=== PATIENT | male | born 1970 | race Caucasian/White ===

== ENCOUNTER 2023-05-07 08:02 | Emergency (ER) | payer OTHER, SELFPAY ==
--- NOTE | 2023-05-07 08:15 | ED.URI ---
HPI - URI/Sore Throat General Chief Complaint: Upper Respiratory Infection Stated Complaint: flu like symptoms Source: patient, RN notes reviewed and old records reviewed Mode of arrival: ambulatory Limitations: no limitations History of Present Illness HPI Narrative: 52-year-old male presents to Express Care with complaint of sinus congestion, sneezing, cough, myalgias, and nausea and vomiting that started yesterday. Patient denies chest pain, dizziness, weakness, shortness of breath. Patient has not taken anything for symptoms MD elicited complaint: cough and rhinorrhea Onset (ago): day(s) (1) Related Data Home Medications Medication Instructions Recorded Confirmed duloxetine 30 mg capsule,delayed mg PO 05/07/23 release lansoprazole 30 mg capsule,delayed mg 05/07/23 release lisinopril 10 mg tablet mg 05/07/23 Allergies Allergy/AdvReac Type Severity Reaction Status Date / Time No Known Allergies Allergy Mild Verified 05/07/23 08:39 Review of Systems Constitutional: Constitutional: Reports as per HPI and Reports body ache(s) Eyes: Eyes: Reports no additional eye complaints ENT: Reports as per HPI, Reports nasal congestion and Reports nasal discharge Cardiovascular: Cardiovascular: Reports no additional cardiovascular complaints Respiratory: Respiratory: Reports as per HPI, Reports cough, Denies pain with cough and Denies dyspnea Gastrointestinal: Gastrointestinal: Reports as per HPI, Denies diarrhea, Reports nausea and Reports vomiting Neurologic: Reports system reviewed and no additional complaints, except as documented PMFSH Past Medical History Medical History Acid reflux Depression Hypertension Comments At the time of my signature, I reviewed and agree with the nursing past medical, surgical, social, and family history. There is no relevant family history pertinent to the patient complaint. Exam Const: General: cooperative, healthy appearing, no acute distress and well nourished Nutritional Appearance: well nourished Orientation/consciousness: patient oriented x3 Limitations: no limitations HENMT: Head: normal to inspection and normocephalic Ears: external ears normal, TM's normal bilaterally, mastoids normal and Abnormal EAC present Face/Nose/Sinus: normal facial exam Face and sinus: normal facial exam Mouth: Yes Normal oral and palatal mucosa present, Yes oropharynx normal and Yes moist mucous membranes Throat: posterior oropharynx normal, tonsils normal, uvula midline and no uvular edema Eyes: General: appearance normal, both eyes and all related structures Sclera: sclerae normal Pupils: Equal, round and reactive pupils present Resp: Effort & Inspection: normal respiratory effort, able to speak in complete sentences, no audible wheezes, no cough, no respiratory distress and no retractions Auscultation: clear to auscultation bilaterally, no crackles, no rales, no rhonchi and no wheezes Cardio: Rate: regular rate Rhythm: regular rhythm Skin: General skin exam: normal color and no rashes or lesions noted Neuro: General: patient oriented x3 Cranial nerves: Yes Equal, round and reactive pupils present Psych: Appearance: grossly normal Course Course Emergency Course: Some parts of this dictation were generated by voice recognition software and may contain typographical and/or grammatical inaccuracies. Level of Care: Express Care Visit Vital Signs Vital signs: Reviewed MDM - URI/Sore Throat MDM Narrative Medical decision making narrative: patient with symptoms of cough, congestion, myalgias, and vomiting for 1 day. Patient positive for COVID, influenza a in clinic today. Patient is hemodynamically stable and non-septic appearing. Pt is appropriate for discharge home at this time in the setting of strict return/follow-up precautions to include s/s warranting immediate emergency department evaluation. Al
[2023-05-07 08:19] VITALS: BP 129/81; PULSE 128; RESP 18; TEMP 38.8; O2SAT 99
== END 2023-05-07 09:55 | disposition home or self-care (01) ==
PROVIDERS: Emergency Provider Registered Nurse; PCP Family Medicine
DX: U07.1 COVID-19 (principal); J10.1 Influenza due to other identified influenza virus with other respiratory manifestations; K21.9 Gastro-esophageal reflux disease without esophagitis; I10 Essential (primary) hypertension
CPT/HCPCS: 87426; 87804; 99213; C9803; G0463

== ENCOUNTER 2024-08-06 13:11 | Emergency (ER) | payer OTHER, SELFPAY ==
--- NOTE | ~2024-08-06 | XR_ITS ---
EXAMINATION: XR finger 5th RT min 2V DATE: 08/06/2024 13:27 INDICATION: Right hand fifth digit deformity. TECHNIQUE: 3 views of right hand fifth digit were obtained. COMPARISON: None. FINDINGS: There is hyperflexion at fifth distal interphalangeal joint. No fracture. Joint spaces are normal. IMPRESSION: 1. Hyperflexion at fifth distal interphalangeal joint. Reviewed, dictated and finalized at location [facility]
--- OUTSIDE RECORDS SUMMARY | 2024-08-06 13:13 | XMS_ITS | Referral Summary ---
Author Organization [facility] ([facility] at the [facility] Address [address] [place] [address] Care Team Providers Care Disposal Man Name Role Phone Pravin Wharton MD Unavailable Jose Juan Vogel MD Primary Care Provider [phone] Allergies No known active allergies Medications ALPRAZolam (XANAX) 0.5 mg tabletIndicatio ns:Anxiety Take 1 tablet (0.5 mg total) by mouth daily as needed for anxiety 30 tablet 05/07/20 20 Active Additional Information Patient not taking.Reported on 11/02/2023 aspirin 81 mg chewable tablet Take 1 tablet (81 mg total) by mouth daily Active DULoxetine DR (CYMBALTA) 30 mg capsuleIndicati ons:Anxiety TAKE 1 CAPSULE(30 MG) BY MOUTH DAILY 90 capsule 07/18/19 25 Active lisinopriL (PRINIVIL,ZESTR IL) 10 mg tablet TAKE 1 TABLET(10 MG) BY MOUTH DAILY 90 tablet 07/18/19 25 Active lansoprazole (PREVACID) 30 mg capsuleIndicati ons:GERD without esophagitis TAKE 1 CAPSULE(30 MG) BY MOUTH DAILY 90 capsule 07/18/[address] (CYMBALTA) 30 mg capsuleIndicati ons:Anxiety TAKE 1 CAPSULE(30 MG) BY MOUTH DAILY 90 capsule 04/18/20 24 025 Discontinued lansoprazole (PREVACID) 30 mg capsuleIndicati ons:GERD without esophagitis TAKE 1 CAPSULE(30 MG) BY MOUTH DAILY 90 capsule 04/18/20 24 025 Discontinued lisinopriL (PRINIVIL,ZESTR [place]) 10 mg tablet TAKE 1 TABLET(10 MG) BY MOUTH DAILY 90 tablet 04/18/20 24 025 Discontinued Active Problems Problem Noted Date Diagnosed Date Essential hypertension, benign 2021 Annual physical exam 09/10/2021 Spondylosis, cervical 02/14/2019 KESHAV (generalized anxiety disorder) 12/17/2016 GERD without esophagitis 12/17/2016 Hypertriglyceridemia 12/17/2016 Dilatation of pulmonic artery 02/18/2016 Cardiomyopathy 02/18/2016 Asthma 08/16/2004 Resolved Problems Problem Noted Date Diagnosed Date Resolved Date Palpitations 2021 11/02/2023 Neck pain 02/14/2019 05/07/2020 Pain of left upper extremity 02/14/2019 05/07/2020 Elevated blood-pressure read ing without diagnosis of hypertension 08/16/2004 2021 Immunizations Immunization Administration Dates Next Due Hep A, Adult 01/08/2015,07/10/2014 Hep A, Unspecified 01/08/2015,07/10/2014 Hep B Vaccine 01/08/2015,08/07/2014,07/10/2014 Hep B, Unspecified 01/08/2015,08/07/2014, 015 Influenza, Unspecified 03/01/2023(Deferr ed: Patient Refused),03/01/2022(Deferred: Patient Refused),03/21/2021(Deferred: Patient Refused) Social History Tobacco Use Types Packs/Day Years Used Date Smoking Tobacco: Never Smokeless Tobacco: Never Tobacco Cessation:Counseling Given: Not Answered Alcohol Use Standard Drinks/Week Comments Never 0 (1 standard drink = 0.6 oz pur e alcohol) AUDIT-C Answer Date Recorded Frequency of Alcohol Consumption Not on file 09/16/2022 Q2: How many drinks containi ng alcohol do you have on a typical day when you are drinking? 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 Gender Identity Male 10/23/2021 2:24 PM CDT Sexual Orientation Not on file Last Filed Vital Signs Vital Sign Reading Time Taken Comments Blood Pressure 130/74 11/02/2023 10:33 AM CDT Pulse 91 11/02/2023 10:33 AM CDT Temperature 36.8 C (98.3 F) 11/02/2023 10:33 AM CDT Respiratory Rate 16 01/28/2022 1:03 PM CDT Oxygen Saturation 95% 11/02/2023 10:33 AM CDT Inhaled Oxygen Concentration - - Weight 98.7 kg (217 lb 9.6 oz) 11/02/2023 10:33 AM CDT Height 175.3 cm (5' 9 ) 11/02/2023 10:33 AM CDT Body Mass Index 32.13 11/02/2023 10:33 AM CDT Plan of Treatment Not on file Procedures Procedure Name Priority Date/Time Associated Diagnosis Comments PSA SCREEN Routine 11/07/2023 6:12 AM CDT Annual physical exam COLONOSCOPY Routine 01/29/2021 from Last 3 Months or Most Recently Relevant to Health Maintenance Results * PSA screen (11/07/2023 6:12 AM CDT) PSA-Total 0.20 <=3.90 ng/mL Comment: Interpretive Data AGE SEX REFERENCE INTERVAL 0 minutes-150 years Female None 0 minutes-49 years Male None 50-59 years Male 0-3.90 60-69 years Male 0-5.40 70-79 years Male 0-6.20 80-150 years Male 0-6.20 The Eliazar PSA Total assay procedure was used. Results from different manufacturers or methods may not be comparable. Serial testing should be performed using the same method. Current interpretive data last revised 21. Blood 11/07/2023 6:12 AM CDT 11/07/2023 6:55 AM CDT Jose Juan Vogle MD LAB BLOOD ORDERABLES Final Re sult [facility] [id number] [facility] [place] [address] * (ABNORMAL) Colonoscopy (01/29/2021) Anatomical Region Laterality Modality Other 01/29/2021 us Historical Provider ENDOSCOPY PROCEDURES Whit l Result from Last 3 Months or Most Recently Relevant to Health Maintenance Insurance [facility] Care Teams Disposal Man Relationship Specialty Start Date End Date Jose Juan Vogel MD [address] [address] PCP - General 02/09/19 Pravin Wharton MD [address] [address] Folder And Notcher Cardiology 02/01/19
--- OUTSIDE RECORDS SUMMARY | 2024-08-06 13:13 | XMS_ITS | Clinical Summary ---
Author Organization [facility] Address [address] [place] [address] Care Team Providers Care Harbor Tug Captain Name Role Phone None, Provider MD Primary Care Provider Unavaila ble Allergies No known active allergies Medications DULoxetine 20 MG capsule Take 20 mg by mouth daily. Active lansoprazole 30 MG capsule Take 30 mg by mouth daily. 05/07/2020 Active Immunizations Name Administration Dates Next Due Hepatitis A 01/08/2015,07/10/2014 Hepatitis B 01/08/2015,08/07/2014,07/10/2014 Social History Tobacco Use Types Packs/Day Years Used Date Smoking Tobacco: Never Smokeless Tobacco: Never Alcohol Use Standard Drinks/Week Comments Never 0 (1 standard drink = 0.6 oz pur e alcohol) Sex and Gender Information Value Date Recorded Sex Assigned at Not on file Legal Sex Male 1:33 PM CDT Gender Identity Not on file Sexual Orientation Not on file Last Filed Vital Signs Vital Sign Reading Time Taken Comments Blood Pressure 120/94 01/29/2021 6:45 AM CDT Pulse 74 01/29/2021 6:45 AM CDT Temperature 36.4 C (97.5 F) 01/29/2021 6:30 AM CDT Respiratory Rate 15 01/29/2021 6:45 AM CDT Oxygen Saturation 97% 01/29/2021 6:45 AM CDT Inhaled Oxygen Concentration - - Weight 97.7 kg (215 lb 6.2 oz) 01/22/2021 3:20 P M CDT Height 177.8 cm (5' 10 ) 01/22/2021 3:20 PM CDT Body Mass Index 30.91 01/22/2021 3:20 PM CDT Plan of Treatment Health Maintenance Due Date Last Done Comments Annual Physical 1972 Hepatitis C 12/19/1987 DTaP, Tdap and Td Vaccines ( 1 - Tdap) 1988 Zoster Vaccines (1 of 2) 12/19/2019 COVID-19 Vaccine ( - 2023-2 5 season) 2024 Influenza Adult (#1) 2024 Colorectal Cancer Screening Colonoscopy (10 Years) 01/29/2031 01/29/2021, 01/29/2021 Hepatitis B Vaccines Completed 01/08/2015, 08/07/2014, 07/10/2014 Meningococcal B Vaccine Aged Out No l onger eligible based on patient's age to complete this topic Meningococcal Vaccine Aged Out No keeley yanna eligible based on patient's age to complete this topic Pneumococcal Vaccine: Pediatrics (0 to 5 Years) and At-Risk Patients (6 to 64 Years) Aged Out No longer eligible b ased on patient's age to complete this topic RSV Immunizations Under 20 Months Aged Out No longer eligible b ased on patient's age to complete this topic Procedures Procedure Name Priority Date/Time Associated Diagnosis Comments COLONOSCOPY Routine 01/29/2021 5:25 AM CDT from Last 3 Months or Most Recently Relevant to Health Maintenance Care Teams Harbor Tug Captain Relationship Specialty Start Date End Date None, Provider, PCP - General 01/25/21
--- OUTSIDE RECORDS SUMMARY | 2024-08-06 13:13 | XMS_ITS | Encounter Summary ---
Author Organization [facility] Address [address] [place] [address] Care Team Providers Care Cyber Analyst Name Role Phone None, Provider MD Primary Care Provider Unavaila ble Encounter Details Date Type Department Care Team (Late st Contact Info) Description 01/25/2021 Prep for Procedure [facility] [place] [address] Miguel Joshi DO Social History Tobacco Use Types Packs/Day Years Used Date Smoking Tobacco: Never Smokeless Tobacco: Never Alcohol Use Standard Drinks/Week Comments Never 0 (1 standard drink = 0.6 oz pur e alcohol) Sex and Gender Information Value Date Recorded Sex Assigned at Not on file Legal Sex Male 1:33 PM CDT Gender Identity Not on file Sexual Orientation Not on file COVID-19 Exposure Response Date Recorded In the last month, have you been in contact with someone who was confirmed or suspected to have Coronavirus / COVID-19? No / Unsure 01/22/2021 3:21 PM CDT documented as of this encounter Plan of Treatment Not on file documented as of this encounter Results * CORONAVIRUS (COVID 19) (01/25/2021 9:00 AM CDT) SPEC DESCRIPTION NASAL 01/26/20 9:24 AM CDT [facility] CORONAVIRUS SARS COV 2 PCR (RESP) NEGATIVE NEGATIVE 01/25/2021 9:11 PM CDT [facility] Comment: THE SARS-CoV-2 TEST HAS BEEN AUTHORIZED BY THE FDA UNDER AN EUA FOR USE BY AUTHORIZED LABORATORIES. PERFORMED BY NUCLEIC ACID AMPLIFICATION PCR FIRST TEST UNKNOWN 01/25/2021 9:[address] [facility] EMPLOYED IN HEALTHCARE NO 01/25/2021 9:[address] [facility] SYMPTOMATIC DEFINED BY CDC UNKNOWN 01/25/2021 9:[address] [facility] HOSPITALIZATION STATUS NO 01/25/2021 9:[address] [facility] PATIENT IN ICU NO 01/25/2021 9:[address] [facility] RESIDENT OF [facility] NO 01/25/2021 9:[address] [facility] NASAL STRUCTURE / Unknown 01/25/2021 9:00 AM CDT Miguel Joshi DO MICROBIOLOGY - GENERAL ORDERABL ES Final Result Performing Organization Address City/State/[facility] Co de Phone Number [facility] [address] [place] [address], [place] [phone] [facility] [address] [place] [address], [place] [phone] documented in this encounter Visit Diagnoses Diagnosis GERD (gastroesophageal reflux disease)- Primary Esophageal reflux documented in this encounter Additional Health Concerns Infection Onset Date Last Indicated Resolved Time COVID-19 Rule Out 01/25/2021 01/25/2021 01/25/2021 9:11 PM CDT documented as of this encounter Care Teams Cyber Analyst Relationship Specialty Start Date End Date None, Provider, PCP - General 01/25/21 documented as of this encounter
--- OUTSIDE RECORDS SUMMARY | 2024-08-06 13:13 | XMS_ITS | Continuity of Care Document ---
Author Organization [facility] Address [address] [place] [address] Phone Care Team Providers Care Advertising Designer Name Role Phone Margarita Hawkins NP Unavailable Unavailable Advance Directives Directive Yes / No Effective Date File Name No Information Encounters Encounter Description Practice Location Reason(s) For Visit Diagnoses Date Provider Providers Copied on Encounter [facility], [address], [place], [place], [id number], tel:[phone] [facility] No Information 5 Ross Avila. [address] [place] [address], [facility] [address] [place], [place], [id number] . tel: [phone] [facility], [address], [place], [place], [id number], tel:[phone] [facility] LUMBAGOLUMBOSACRAL NEURITIS NOS [address]200 [address] Best Manzano. [address] [place] [address], [facility] [address] , [place], [place], [id number] , . tel: [phone] [facility], [address], [place], [place], [address], tel:[phone] [facility] ASTHMA NOSABN BLOOD CHEMISTRY NECSCREEN LIPOID DISORDERSELEV BL PRES W/O HYPERTNMALAISE AND FATIGUE NECSHORTNESS OF BREATH 8200 [address] Best Manzano. [address] [place] [address], [facility] [address] , [place], [place], [id number] , . tel: [phone] Family History Family Member Type Diagnosis Age At Onset No Information Payers Payer name Insurance type Covered democrat ID Authoriza tion(s) No Information Social History Type Description Quantity Date Captured Comments Sex Male Smoking Status No Information Chief Complaint And Reason For Visit No Information Reason For Referral Reason For Referral No Information History Of Present Illness Encounter Date Complaint History Of Prese nt Illness No Information Functional Status Date Functional Assessmen t No Information Instructions Date Instruction Additional Infor mation No Information Assessments Type Assessment Date No Information Patient Care Teams Name Effective Dates (start - stop) Status Members No Information
--- OUTSIDE RECORDS SUMMARY | 2024-08-06 13:13 | XMS_ITS | Clinical Summary ---
Author Organization [facility] Address [address] [place] [address] Care Team Providers Care Medical Billing Specialist Name Role Phone Pravin Wharton MD Unavailable [phone] Jose Juan Vogel MD Primary Care Provider [phone] Allergies No known active allergies Medications ALPRAZolam [...] ed: Patient Refused),03/01/2022(Deferred: Patient Refused),03/21/2021(Deferred: Patient Refused) Surgical History Surgery Date Site/Laterality Comments LUMBAR SPINE SURGERY ruptured disc FINGER SURGERY Left 3rd finger reattatchment COLONOSCOPY Medical History Medical History Date Comments GERD (gastroesophageal reflux disease) Nervousness SOB (shortness of breath) Cardiomyopathy (HCC) Dilatation of pulmonic artery (HCC) Anemia Hypertension Hyperlipidemia Family History Medical History Relation Name Comments No Known Problems Brother No Known Problems Father No Known Problems Mother Rheum arthritis Sister CONNOR disease Son 1 No Known Problems Son 2 Relation Name Status Comments Brother Alive Father Alive Mother Alive Sister Alive Son 1 Alive Son 2 Alive Social History Tobacco Use Types Packs/Day Years [...] on file 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 Gender Identity Male 10/23/2021 2:24 PM CDT Sexual Orientation Not on file Obstetrics History Last Filed Vital Signs Vital Sign Reading [...] 11/02/2023 10:33 AM CDT Plan of Treatment Health Maintenance Due Date Last Done Comments Hepatitis C Screening 1969 DTaP/Tdap/Td Vaccine (1 - Tdap) 1980 Pneumococcal vaccine <65 (1 of 2 - PCV) 1988 Zoster Vaccine (1 of 2) 12/19/2019 Covid-19 Vaccine (3 - 2023-2 5 season) 2024 04/20/2021, 03/30/2021 Influenza Vaccine (#1) 2024 Depression Screening 11/01/2024 11/02/2023, 09/16/2022, 09/10/2021, Additional history exists Regular Well Visit/Exam 18-64 11/01/2024, 09/16/2022, 09/10/2021 Prostate Cancer Screening-PSA 11/06/2025, 10/02/2021, 05/12/2020, Additional history exists Colon Cancer Screening-Colonoscopy 01/29/2031 01/29/2021 Hepatitis B Screening Completed 01/08/2015 , 01/08/2015, 08/07/2014, Additional history exists Colon Cancer Screening-CT Colonography Discontinued 01/29/2021 Colon Cancer Screening-DNA Stool Discontinued 01/30/20 21 Colon Cancer Screening-FIT Discontinued 01/29/2021 Colon Cancer Screening-Sigmoidoscopy Discontinued 01/29/2021 Procedures Procedure Name Priority Date/Time Associated Diagnosis [...] 6:12 AM CDT 11/07/2023 6:55 AM CDT us Jose Juan Vogel MD LAB BLOOD ORDERABLES Final Re sult [facility] [address] [facility] Department [place] [address] * (ABNORMAL) Colonoscopy (01/29/2021) Anatomical Region Laterality Modality Other 01/29/2021 us Historical Provider ENDOSCOPY PROCEDURES Whit l Result from Last 3 Months or Most Recently Relevant to Health Maintenance Insurance [facility] Care Teams Medical Billing Specialist Relationship Specialty Start Date End Date Jose Juan Vogel MD [address] [place] [address] PCP - General 02/09/19 Pravin Wharton MD [address] [place] [address] [address] Pouncing Machine Operator Cardiology 02/01/19
[2024-08-06 13:39] VITALS: BP 140/76; PULSE 79; RESP 16; TEMP 36.6
--- OUTSIDE RECORDS SUMMARY | 2024-08-06 14:13 | XMS_ITS | Continuity of Care Document ---
Author Organization [facility] Address [address] [place] [address] Phone Care Team Providers Care Quality Process Auditor Name Role Phone Margarita Hawkins NP Unavailable Unavailable Advance Directives Directive Yes / No Effective Date File Name No Information Encounters Encounter Description Practice Location Reason(s) For Visit Diagnoses Date Provider Providers Copied on Encounter [facility], [address], [place], [place], [id number], tel:[phone] [facility] No Information 5 Ross Avila. [address] [place] [address], [facility] [address] [place], [place], [id number] . tel: [phone] [facility], [address], [place], [place], [address], tel:[phone] [facility] LUMBAGOLUMBOSACRAL NEURITIS NOS 0200 5 Best Manzano. [address] [place] [address], [facility] [address] , [place], [place], [id number] , . tel: [phone] [facility], [address], [place], [place], [address], tel:[phone] [facility] ASTHMA NOSABN BLOOD CHEMISTRY NECSCREEN LIPOID DISORDERSELEV BL PRES W/O HYPERTNMALAISE AND FATIGUE NECSHORTNESS OF BREATH 8[address] 5 Best Manzano. [address] [place] [address], [facility] [address] , [place], [place], [id number] , . tel: [phone] Family History Family Member Type Diagnosis Age At Onset No Information Payers Payer name Insurance type Covered constitution party ID Authoriza tion(s) No Information Social History [...]
--- OUTSIDE RECORDS SUMMARY | 2024-08-06 14:13 | XMS_ITS | Clinical Summary ---
Author Organization [facility] Address [address] [place] [address] Care Team Providers Care Ela Teacher Name Role Phone None, Provider MD Primary [...] Recently Relevant to Health Maintenance Care Teams Ela Teacher Relationship Specialty Start Date End Date None, Provider, PCP - General 01/25/21
--- OUTSIDE RECORDS SUMMARY | 2024-08-06 14:13 | XMS_ITS | Encounter Summary ---
Author Organization [facility] Address [address] [place] [address] Care Team Providers Care All Purpose Clerk Name Role Phone None, Provider MD Primary Care Provider Unavaila ble Encounter Details Date Type Department Care Team (Late st Contact Info) Description 01/25/2021 Prep for Procedure [facility] [place] [address] Miguel Joshi DO Social History Tobacco Use [...] SPEC DESCRIPTION NASAL 01/26/20 9:24 AM CDT [facility] CORONAVIRUS SARS COV 2 PCR (RESP) NEGATIVE NEGATIVE 01/25/2021 9:11 PM CDT [facility] Comment: THE SARS-CoV-2 TEST HAS BEEN AUTHORIZED BY THE FDA UNDER AN EUA FOR USE BY AUTHORIZED LABORATORIES. PERFORMED BY NUCLEIC ACID AMPLIFICATION PCR FIRST TEST UNKNOWN 01/25/2021 9:[address] [facility] EMPLOYED IN HEALTHCARE NO 01/25/2021 9:[address] [facility] SYMPTOMATIC DEFINED BY CDC UNKNOWN 01/25/2021 9:[address] [facility] HOSPITALIZATION STATUS NO 01/25/2021 9:[address] [facility] PATIENT IN ICU NO 01/25/2021 9:[address] [facility] RESIDENT OF [facility] NO 01/25/2021 9:[address] [facility] NASAL STRUCTURE / Unknown 01/25/2021 9:00 AM CDT Miguel Joshi DO MICROBIOLOGY - GENERAL ORDERABL ES Final Result Performing Organization Address City/State/[facility] Co de Phone Number [facility] [address] [place] [address], [place] [phone] [facility] [address] [place] [address], [place] [phone] documented in this encounter Visit Diagnoses Diagnosis GERD (gastroesophageal reflux disease)- Primary Esophageal reflux documented in this encounter Additional Health Concerns Infection Onset Date Last Indicated Resolved Time COVID-19 Rule Out 01/25/2021 01/25/2021 01/25/2021 9:11 PM CDT documented as of this encounter Care Teams All Purpose Clerk Relationship Specialty Start Date End Date None, Provider, PCP - General 01/25/21 documented as of this encounter
--- OUTSIDE RECORDS SUMMARY | 2024-08-06 14:13 | XMS_ITS | Clinical Summary ---
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 Care Teams Crude Tester Relationship Specialty Start Date End Date Jose Juan Vogel MD [address] [place] [address] PCP - General 02/09/19 Pravin Wharton MD [address] [address] [facility] 02/01/19
--- OUTSIDE RECORDS SUMMARY | 2024-08-06 14:13 | XMS_ITS | Referral Summary ---
Author Organization 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 Gender Identity Male 10/23/2021 2:24 PM CDT [...] CDT 11/07/2023 6:55 AM CDT Jose Juan Vogel MD LAB BLOOD ORDERABLES Final Re sult [facility] [address] [facility] Department [place] [address] * (ABNORMAL) Colonoscopy (01/29/2021) Anatomical Region Laterality Modality Other 01/29/2021 us Historical Provider ENDOSCOPY PROCEDURES Whit l Result from Last 3 Months or Most Recently Relevant to Health Maintenance Insurance [facility] Care Teams Director Information Relationship Specialty Start Date End Date Jose Juan Vogel MD [address] [facility] [address] [address] PCP - General 02/09/19 Pravin Wharton MD [address] [facility] [address] [address] [employer] [facility] 02/01/19
--- NOTE | 2024-08-06 15:02 | ED_ITS ---
HPI - Trauma General Chief Complaint: Extremity Injury, Upper Stated Complaint: Right 5th finger injury Time Seen by Provider: 08/06/24 14:08 Source: patient Mode of arrival: ambulatory Limitations: no limitations History of Present Illness HPI narrative: This is a 53-year-old male who presents to the ED for chief complaint of right pinky finger injury that occurred earlier today. Patient states that he was pushing himself off of a chair when he felt a pop in the distal 5th finger. States that after the pop he has been unable to straighten the most distal aspect of his right 5th finger. States there is minimal pain. Denies any other injury. Related Data Home Medications ?Medication ?Instructions ?Recorded ?Confirmed ?Last Taken ?Type duloxetine 30 mg capsule,delayed mg PO 05/07/23 Unknown History release lansoprazole 30 mg capsule,delayed mg 05/07/23 Unknown History release lisinopril 10 mg tablet mg 05/07/23 Unknown History Allergies Allergy/AdvReac Type Severity Reaction Status Date / Time No Known Allergies Allergy Mild Verified 08/06/24 13:11 Review of Systems Review of Systems: All systems as dictated in [facility] Past Medical History Medical History Acid reflux Depression Hypertension Exam Narrative: GENERAL: Well-appearing, well-nourished, and in no acute distress. HEAD: Normocephalic, atraumatic. MSK: Unable to actively extend the D IP of right distal 5th finger. Minimal tenderness to the dorsum of the joint. No other deformity or areas of tenderness. SKIN: Warm, dry, no rash. NEURO: Alert and oriented x4. No focal deficits. PSYCH: Normal mood and affect. Course Vital Signs Vital signs: Vital Signs Temperature 97.8 F 08/06/24 13:39 Pulse Rate 79 08/06/24 13:39 Respiratory Rate 16 08/06/24 13:39 Blood Pressure 140/76 08/06/24 13:39 Oxygen Delivery Room Air 08/06/24 13:39 Temperature 97.8 F 08/06/24 13:39 Pulse Rate 75 08/06/24 15:10 Respiratory Rate 16 08/06/24 15:10 Blood Pressure 138/70 08/06/24 15:10 Pulse Oximetry 99 08/06/24 15:10 Oxygen Delivery Room Air 08/06/24 13:39 MDM - Trauma MDM Narrative Medical decision making narrative: This is a 53-year-old male who presents to the ED for chief complaint of right 5th pinky injury. Vitals are normal. Exam remarkable for the above. No bruising or swelling. X-rays of the right 5th finger show flexion at the right 5th digit PIP. Presentation consistent with a deformity due to extensor tendon injury. Patient was placed in air splint with extension. Hand surgeon referral given. Patient will be discharged in stable condition. Supportive measures discussed and return precautions given. Patient is understanding and agreeable with plan for discharge with PCP follow-up. Discharge Plan Discharge Clinical Impression: Closed injury of tendon of finger excluding thumb with mallet deformity Patient Disposition: Home, Self-Care Condition: Stable Instructions: Antibiotic Form, Jammed Finger (ED) Additional Instructions: Please use the finger splint until otherwise directed by hand surgeon. Use Tylenol as needed for pain control. If you have any new or worsening symptoms please return to the ER for further evaluation. Patient Language: Uzbek Prescriptions: No Action ondansetron 4 mg tablet,disintegrating 4 mg PO Q6H PRN (Reason: nausea and vomiting) Qty: 15 0RF ondansetron 4 mg tablet,disintegrating 4 mg PO Q6H PRN (Reason: nausea and vomiting) Qty: 15 0RF lisinopril 10 mg tablet lansoprazole 30 mg capsule,delayed release(DR/EC) duloxetine 30 mg capsule,delayed release(DR/EC) PO Follow-up/Referrals: Demetria Valentien MD [Physician] - Lela,Jose Juan Renteria MD [Primary Care Provider] - Time of Disposition: 15:05
[2024-08-06 15:10] VITALS: BP 138/70; PULSE 75; RESP 16; O2SAT 99
== END 2024-08-06 15:12 | disposition home or self-care (01) ==
PROVIDERS: Emergency Provider Physician Assistant; PCP Family Medicine
DX: S66.306A Unspecified injury of extensor muscle, fascia and tendon of right little finger at wrist and hand level, initial encounter (principal); M20.011 Mallet finger of right finger(s); X50.1XXA Overexertion from prolonged static or awkward postures, initial encounter; I10 Essential (primary) hypertension; F32.A Depression, unspecified; K21.9 Gastro-esophageal reflux disease without esophagitis
CPT/HCPCS: 29130; 73140; 99283